=== PATIENT | male | born 1985 | race Caucasian/White ===

== ENCOUNTER 2023-01-11 21:27 | Emergency (ER) | payer OTHER, SELFPAY ==
[2023-01-11 21:28] VITALS: BP 134/99; PULSE 111; RESP 16; TEMP 36.7; O2SAT 98; BMI 63.6
--- NOTE | 2023-01-11 21:56 | EDS_ITS ---
HPI History of Present Illness Chief Complaint: Abscess Informant: patient Onset/Context/Timing Onset: Weeks (1) Context: Gradual Onset Timing: Continuous Quality: Tender swollen Location: Left forearm Current Severity: Moderate Maximum Severity: Moderate Worsened by: Palpation Narrative Narrative: Patient with spontaneous onset of a tender swollen area on his left forearm, started 1 week ago as a small red pimple that has gradually grown, he shows me pictures, basically a small papule with some mild surrounding cellulitis that has grown into a large abscess. 3 days ago he was seen at an urgent care and prescribed doxycycline, and they cecil a line around the erythematous area. He also developed a lesion at the base of his neck anteriorly, to the left. He states since he has been on the doxycycline the neck lesion has gotten better, and the erythema around the left forearm abscess has withdrawn/improved, but the abscess itself is gotten bigger and started to drain some purulent material. No systemic symptoms or fevers. No IV drug use. No known history of MRSA. 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 PFSH [facility] Medical History no medical history no medical history Home Medications doxycycline hyclate 100 mg capsule 100 mg PO BID 01/11/23 [History Last Taken Unknown] Allergy/AdvReac Type Severity Reaction Status Date / Time No Known Allergies Allergy Verified 01/11/23 21:27 Surgical History no surgical history Social History (Updated 01/11/23 @ 21:[address] Adrian Pena MD) Smoking Status: Never smoker substance use type: does not use ROS ROS ED Constitutional Constitutional ED: Denies chills or fever(s) Musculoskeletal Musculoskeletal: Reports extremity pain and neck pain Integumentary Reports wounds; Denies Abrasions Neurologic Neurologic: Denies paresthesias or weakness EXAM Physical Exam Const Vital Signs: 01/11/23 21:28 Temperature 98.1 F Temperature Source Temporal Pulse Rate 111 H Respiratory Rate 16 Blood Pressure 134/99 H Blood Pressure Mean 110 Pulse Ox 98 Oxygen Delivery Method Room Air Positive well nourished and well developed General Appearance ED: well developed and NAD Neck full ROM and supple Back/Spine normal ROM and normal to inspection Extremity Extremity Narrative: Tender, pointing, erythematous indurated and fluctuant 3 cm abscess on the radial aspect of the left forearm, junction of the distal and middle thirds, tender, cellulitis surrounding it but does not extend to the line that was drawn, no lymphangitis, full range of motion throughout elbow, fingers, and wrist without difficulty. Otherwise extremities benign. Neuro oriented x3, no focal motor deficits and no sensory deficits noted Sensorium / Orientation: alert Psych mental status grossly normal and thought process normal Skin Skin Narrative: Abscess left forearm with surrounding cellulitis mild, another very small nonfluctuant subcentimeter abscess anterior base of the neck on the left side, no spontaneous drainage or surrounding cellulitis. MDM MDM MDM Narrative Medical decision making narrative: Patient amenable to incision and drainage of this abscess which was performed see the procedure note. Since the other lesion on his neck and the erythema/cellulitis around the large left forearm abscess have significantly improved on doxycycline I would recommend continuing that rather than changing it. I suspect MRSA, there is higher resistance to doxycycline and in this area for this, however since it is working I would continue it. If anything worsens I recommend returning to the ER for reevaluation, he is comfortable with that plan. We discussed dressing changes and packing removal. Procedures Other Procedures Procedure(s): Complex incision and drainage abscess left forearm: Sterile prep and drape with chlorhexidine, local anesthesia with 5 cc plain 1% lidocaine in and around the abscess, incised centrally with a #10 blade, purulent discharge expressed, entire cavity probed and deloculated, irrigated with saline, and packed with quarter inch sterile gauze. Dressed with bacitracin and gauze, tolerated well no complications. Discharge Plan Triage Chief Complaint: Abscess ED Provider: Adrian Pena Dx/Rx/DC Orders Clinical Impression: Abscess of left forearm Instructions: ED Abscess Incision And Drainage Prescriptions: Continued doxycycline hyclate 100 mg Capsule 100 mg PO BID Primary Care Provider: Care Physician,No Primary Referrals: Doctor,Your [Non-Staff] - 3-5 Days if not improving (or return to ER) Activity Restrictions/Additional Instructions: Change dressing frequently in the first day or 2, as needed whenever it gets dirty/bloody. This type of discharge is normal. Use antibiotic ointment to each dressing. Okay to shower and get soap and water on the affected area but pat dry and change the dressing afterwards. In approximately 2 days, on 01/14, remove the gauze packing and discard, followed by continue dressing changes with antibiotic ointment with each one. Disposition Disposition: Home, Self Care
[2023-01-11] MEDS: Lidocaine 1% (20 ml mdv) 20 ML Vial INFILT (22:25)
[2023-01-11] MEDS: Ibuprofen 600 MG Tablet PO (23:03)
== END 2023-01-11 23:09 | disposition home or self-care (01) ==
PROVIDERS: Emergency Provider Emergency Medicine; Visit Provider Emergency Medicine
DX: L02.414 Cutaneous abscess of left upper limb (principal)
CPT/HCPCS: 10061; 10060; 99283

== ENCOUNTER 2023-05-22 20:58 | Emergency (ER) | payer OTHER, SELFPAY ==
[2023-05-22 20:59] VITALS: BP 139/94; PULSE 121; RESP 16; TEMP 36.9; O2SAT 99; BMI 32.4
--- NOTE | 2023-05-22 21:10 | EX.ED.DYSGE1 ---
HPI History of Present Illness Chief Complaint: Abscess Informant: patient Onset/Context/Timing Onset: Days (2) Context: Gradual Onset Timing: Continuous Quality: sore Location: L buttock Current Severity: Moderate Maximum Severity: Moderate Worsened by: palpation/sitting Relieved by: leaving alone Narrative Narrative: Patient developed a sore swollen area that started draining today, started as a pimple. Similar to the lesion he had on his left forearm earlier this year that he had I indeed here. States he rode in a dirty car and this started shortly thereafter this time. No systemic symptoms. PFSH PFSH Medical History no medical history no medical history Home Medications doxycycline hyclate 100 mg capsule 100 mg PO BID 01/11/23 [History Last Taken Unknown] sulfamethoxazole 800 mg-trimethoprim 160 mg tablet 1 tab PO BID #20 TABLETS 05/22/23 [Rx Last Taken Unknown] Allergy/AdvReac Type Severity Reaction Status Date / Time No Known Allergies Allergy Verified 05/22/23 21:01 Social History Smoking Status: Never smoker substance use type: does not use ROS ROS ED Constitutional Constitutional ED: Denies chills or fever(s) Integumentary Reports abscess Neurologic Neurologic: Denies headache(s), paresthesias or weakness EXAM Physical Exam Const Vital Signs: 05/22/23 20:59 Temperature 98.4 F Temperature Source Temporal Pulse Rate 121 H Respiratory Rate 16 Blood Pressure 139/94 H Blood Pressure Mean 109 Pulse Ox 99 Oxygen Delivery Method Room Air Positive well nourished and well developed General Appearance ED: well developed and NAD Skin Skin Narrative: 3 cm in diameter abscess with surrounding erythema left buttock, no expressible spontaneous discharge. MDM MDM MDM Narrative Medical decision making narrative: Abscess was incised and drained, see the procedure note. Only a scant amount of purulent material. Started on Bactrim, advised with regards to dressing changes and antibiotic treatment. Procedures Other Procedures Procedure(s): Simple abscess incision and drainage: Left buttock abscess locally anesthetized with 3 cc plain 1% lidocaine, prepped with isopropanol followed by chlorhexidine, incised centrally with a #11 blade, a very scant amount of purulent material was expressed, I deloculated the cavity which was smaller than expected, and not large enough to pack. Irrigated with saline, dressed with bacitracin, tolerated well no complications. Discharge Plan Triage Chief Complaint: Abscess ED Provider: Adrian Pena Dx/Rx/DC Orders Clinical Impression: Abscess of left buttock Instructions: ED Abscess Incision And Drainage Prescriptions: New sulfamethoxazole-trimethoprim [sulfamethoxazole-trimethoprim] 800-160 mg tablet 1 tab PO BID Qty: 20 0RF No Action doxycycline hyclate 100 mg Capsule 100 mg PO BID Primary Care Provider: Care Physician,No Primary Referrals: Doctor,Your [Non-Staff] - 3-5 Days if not improving Disposition Disposition: Home, Self Care
[2023-05-22] MEDS: Lidocaine 1% (20 ml mdv) 20 ML Vial INFILT (21:32)
[2023-05-22] MEDS: Smz/Tmp Ds Tablet 1 TABLET PO (21:32)
--- NOTE | 2023-05-23 12:46 | ED.RN ---
PRESCRIPTION CALLED IN TO [facility] FOR PT DUE TO MISUNDERSTANDING OF D/C INSTRUCTIONS TO GET PAPER PRESCRIPTION UP TO PHARMACY TO GET IT FILLEWD
== END 2023-05-22 22:37 | disposition home or self-care (01) ==
PROVIDERS: Emergency Provider Emergency Medicine; Visit Provider Emergency Medicine
DX: L02.31 Cutaneous abscess of buttock (principal)
CPT/HCPCS: 10060; 99281; 99282

== ENCOUNTER 2023-06-08 20:59 | Emergency (ER) | payer OTHER, SELFPAY ==
[2023-06-08 20:59] VITALS: BP 153/90; PULSE 100; RESP 16; TEMP 36.6; O2SAT 99; BMI 31.5
--- NOTE | 2023-06-08 22:49 | EX.ED.DYSGE1 ---
HPI History of Present Illness Chief Complaint: Abscess Informant: patient Narrative Narrative: Patient states that he has had MRSA abscesses before. He is starting to get 1 on his left volar wrist. He does not inject drugs. 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 He also gets blocked sweat glands that will sometimes flareup. He states he is coming in early so he does not have a big abscess. He has no fevers chills nausea vomiting or any systemic symptoms. He states nothing that he knows of injured this area but he commonly gets poked and scraped. He has been on Bactrim and doxycycline before. He feels the doxycycline worked better for him. It did not cause any side effects. PFSH PFS Home Medications doxycycline hyclate 100 mg capsule 100 mg PO BID 01/11/23 [History Last Taken Unknown] sulfamethoxazole 800 mg-trimethoprim 160 mg tablet 1 tab PO BID #20 TABLETS 05/22/23 [Rx Last Taken Unknown] doxycycline monohydrate 100 mg capsule 100 mg PO BID #20 CAPSULES 06/08/23 [Rx Last Taken Unknown] Allergy/AdvReac Type Severity Reaction Status Date / Time No Known Allergies Allergy Verified 06/08/23 21:01 Social History Smoking Status: Never smoker substance use type: does not use ROS ROS ED Constitutional Constitutional ED: Denies chills, fever(s), subjective or sweats ENT ENT ED: Denies rhinorrhea or sore throat Cardiovascular Cardiovascular: Denies chest pain or palpitations Respiratory/Chest Respiratory/Chest: Denies cough Gastrointestinal Gastrointestinal: Denies nausea or vomiting Musculoskeletal Musculoskeletal: Denies myalgias Integumentary Reports abscess Endocrine Endocrinology: Denies polydipsia or polyuria Hematologic/Lymphatic Hematologic/Lymphatic: Denies lymphadenopathy Allergic/Immunologic Allergic/Immunologic ED: Denies urticaria EXAM Physical Exam Narrative Exam Narrative: Patient awake alert no acute distress sitting in bed comfortably. HEENT shows no sign of trauma mucous membranes are moist. Lungs are clear bilaterally and saturations are normal at 99% on room air showing no hypoxia. Heart is regular. No murmur. Extremities show a small area of erythema about 1 and half centimeters round on the volar wrist area. There is a slightly raised area but is not fluctuant. I really do not think there is anything to drain at this time. There certainly could be a small abrasion or puncture that initiated this. But it is not large. Its not fluctuant. We discussed options and I do not think incision is appropriate at this time. Const Vital Signs: 06/08/23 20:59 Temperature 97.9 F Temperature Source Temporal Pulse Rate 100 Respiratory Rate 16 Blood Pressure 153/90 H Blood Pressure Mean 111 Pulse Ox 99 Oxygen Delivery Method Room Air MDM MDM MDM Narrative Medical decision making narrative: I discussed options with patient. I do not think he would benefit from incision and drainage. We will get him on antibiotics with warm compresses. If it swells up more or develops a head or soft area that may benefit from incision. Discharge Plan Triage Chief Complaint: Abscess ED Provider: Griffin Adan Dx/Rx/DC Orders Clinical Impression: Abscess of skin of left wrist, History of MRSA infection, Cellulitis of forearm, left Instructions: ED Abscess Antibiotic Treatment Only Prescriptions: New doxycycline monohydrate 100 mg capsule 100 mg PO BID Qty: 20 0RF No Action doxycycline hyclate 100 mg Capsule 100 mg PO BID sulfamethoxazole-trimethoprim [sulfamethoxazole-trimethoprim] 800-160 mg tablet 1 tab PO BID Qty: 20 0RF Primary Care Provider: Care Physician,No Primary Referrals: Jorge Del Cid, [Med Staff - [employer]] - 3-5 Days if not improving Care Physician,No Primary [Primary Care Provider] - Disposition Disposition: Home, Self Care
[2023-06-08] MEDS: Doxycycline 100 MG CAPSULE PO (23:08)
== END 2023-06-08 23:12 | disposition home or self-care (01) ==
PROVIDERS: Emergency Provider Emergency Medicine; Visit Provider Emergency Medicine
DX: L02.414 Cutaneous abscess of left upper limb (principal); L03.114 Cellulitis of left upper limb; Z86.14 Personal history of Methicillin resistant Staphylococcus aureus infection
CPT/HCPCS: 99283

== ENCOUNTER 2023-07-21 19:17 | Emergency (ER) | payer OTHER, SELFPAY ==
[2023-07-21 19:18] VITALS: BP 148/101; PULSE 108; RESP 18; TEMP 36.2; O2SAT 100; BMI 31.4
[2023-07-21 19:20] VITALS: BP 148/101; PULSE 108; RESP 18; TEMP 36.2; O2SAT 100
--- NOTE | 2023-07-21 19:50 | EX.ED.DYSGE1 ---
HPI History of Present Illness Chief Complaint: Abscess Detail of Chief Complaint: Redness and swelling to right hip Informant: patient Narrative Narrative: Patient presents to the emergency department complaint of redness and swelling to his right hip. Patient states that initially started with what looked like a small pimple yesterday which she tried to pop. Now increased redness and swelling. He had some chills today. He had abscess on his left wrist that required incision and drainage. Patient denies IV drug use or injection. PFSH PFSH Medical History no medical history Home Medications NK 07/21/23 [History Last Taken Unknown] cephalexin 500 mg capsule 500 mg PO Q6 #40 CAPSULES 07/21/23 [Rx Last Taken Unknown] sulfamethoxazole 800 mg-trimethoprim 160 mg tablet 1 tab PO BID #20 TABLETS 07/21/23 [Rx Last Taken Unknown] Allergy/AdvReac Type Severity Reaction Status Date / Time No Known Allergies Allergy Verified 07/21/23 19:18 Surgical History no surgical history Social History Smoking Status: Former smoker substance use type: does not use ROS ROS ED Review of Systems ROS Unobtainable: other Constitutional Constitutional ED: Reports lethargy; Denies chills, fever(s), sweats or weight loss Eyes Eyes: Denies blurry vision, change in vision or diplopia ENT ENT ED: Denies rhinorrhea or sore throat Cardiovascular Cardiovascular: Denies chest pain, orthopnea or racing heartbeat Respiratory/Chest Respiratory/Chest: Denies cough, dyspnea, dyspnea on exertion, orthopnea or sputum Gastrointestinal Gastrointestinal: Denies abdominal pain, diarrhea, nausea or vomiting Genitourinary Genitourinary ED: Denies dysuria, hematuria or urinary frequency Musculoskeletal Musculoskeletal: Denies arthralgias, back pain, myalgias or neck pain Integumentary Reports other Details: Redness and swelling to right hip ; Denies abscess, Abrasions or rash Neurologic Neurologic: Denies headache(s) or weakness Psychiatric Psychiatric: Denies anxiety, depression or suicidal thoughts Endocrine Endocrinology: Denies polydipsia, polyphagia or polyuria Hematologic/Lymphatic Hematologic/Lymphatic: Denies easy bleeding, easy bruising or lymphadenopathy Allergic/Immunologic Allergic/Immunologic ED: Denies mouth swelling, tongue swelling or urticaria EXAM Physical Exam Const Vital Signs: 07/21/23 19:18 07/21/23 19:20 07/21/23 22:29 Temperature 97.2 F L 97.2 F L Temperature Source Temporal Temporal Pulse Rate 108 H 108 H 90 Respiratory Rate 18 18 16 Blood Pressure 148/101 H 148/101 H 136/89 H Blood Pressure Mean 116 116 104 Pulse Ox 100 100 Positive well nourished and well developed General Appearance ED: well developed and NAD HEENT Reports TM's clear and moist mucous membranes normocephalic and atraumatic; Negative for trauma or tenderness Tympanic Membrane ED: Yes TM's clear Eyes PERRL and EOMs intact bilaterally General Eye ED: Negative for pale conjunctiva or scleral icterus Neck no lymphadenopathy, supple and no JVD General: Negative for tenderness Chest Wall inspection of chest normal and palpation of chest normal Chest: Negative for tenderness Resp normal respiratory effort and clear to auscultation bilaterally Effort and Inspection: Negative for respiratory distress or pain with movement Auscultation: Negative for rhonchi, wheezes or diminished lung sounds Cardio regular rate, regular rhythm, S1 normal heart sound, S2 normal heart sound and no murmurs Peripheral Pulses: pulses 2+ throughout GI normal to inspection, nondistended, normoactive bowel sounds, soft to palpation, non-tender, non-distended and no masses Back/Spine no CVA tenderness and no thoracic nor lumbar tenderness Extremity Extremity Narrative: Right hip-patient has an area of erythema measuring approximately 15 cm x 12 cm overlying the right hip. Central portion indurated and excoriated and is I compress the area there are small amount of purulent drainage from it. General Extremety ED: Negative for edema General Extremity: Negative for edema Neuro oriented x3, CN's II-XII intact bilaterally, no sensory deficits noted and gait normal Sensorium / Orientation: awake, alert, oriented to person, oriented to place and oriented to time Motor Exam: strength 5/5 throughout and strength abnormal Psych mental status grossly normal Skin no rashes or lesions noted and no wounds MDM MDM MDM Narrative Medical decision making narrative: And consented for incision and drainage of suspected abscess. Please see procedure note. We were able to obtain copious amounts of purulent debris from the wound. I irrigated the cavity and play small iodoform gauze packing. Clean dressing applied. Patient received clindamycin 900 mg IV in the department. I did send off MRSA PCR. We will treat patient with Bactrim and Keflex for home. Clinically he looks well I feel he can attempt p.o. antibiotics at home. We did outline the area of erythema with marker and advised that he return if increased redness, fever, worsening pain or swelling, or condition should worsen anyway. Will refer to general surgery for follow-up Lab Data Attestation: I reviewed the patient's lab results. Labs: Laboratory Results - last 24 hr 07/21/23 07/21/23 20:00 20:30 WBC 16.7 H RBC 4.81 Hgb 15.0 Hct 44.0 MCV 91.5 MCH 31.2 MCHC 34.1 RDW Std Deviation 40.8 RDW Coeff of Mandy 12.1 Plt Count 269 MPV 10.0 Immature Gran % (Auto) 0.400 Neut % (Auto) 72.9 H Lymph % (Auto) 16.6 L Stafford % (Auto) 8.8 Eos % (Auto) 1.0 Baso % (Auto) 0.3 Absolute Neuts (auto) 12.2 H Absolute Lymphs (auto) 2.76 Nucleated RBC % 0 Sodium 136 Potassium 3.4 L Chloride 105 Carbon Dioxide 25.0 Anion Gap 6 BUN 17 Creatinine 1.02 Estim Creat Clear Calc 100.39 Est GFR (MDRD) Af Amer 104 Est GFR (MDRD) Non-Af 86 BUN/Creatinine Ratio 16.7 Glucose 132 H Calcium 9.1 S.aureus Protein A PCR POSITIVE H MRSA (PCR) POSITIVE H Procedures Other Procedures Procedure(s): Incision and drainage of abscess on right hip. Skin cleansed with iodine. Skin anesthetized locally with 1% lidocaine total of 3 cc. Using an 11 blade a 2.5 cm incision was made over the fluctuant portion of the suspected abscess with large amount of purulent debris expressed. I used curved hemostats to undermine the soft tissue and skin and again large amount of purulent debris was expressed. I irrigated the cavity with saline total of 50 cc. I applied a small iodoform gauze wick into the wound and clean dressing will be applied. Advised patient to remove the wick in 2 days or if it falls out to the leave it alone. Patient tolerated procedure well. Discharge Plan Triage Chief Complaint: Abscess ED Provider: Last Garcia Dx/Rx/DC Orders Clinical Impression: Abscess of hip, right, Cellulitis of hip, right Instructions: ED Abscess Incision And Drainage, ED Cellulitis Prescriptions: New sulfamethoxazole-trimethoprim [sulfamethoxazole-trimethoprim] 800-160 mg tablet 1 tab PO BID Qty: 20 0RF cephalexin [cephalexin] 500 mg capsule 500 mg PO Q6 Qty: 40 0RF No Action NK Primary Care Provider: Care Physician,No Primary Referrals: Arias Pham MD [Med Staff - Active Staff] - 3-5 Days Care Physician,No Primary [Primary Care Provider] - Disposition Disposition: Home, Self Care Discharge Date/Time: 07/21/23 22:30
[2023-07-21] MEDS: Lidocaine 1% (20 ml mdv) 20 ML Vial 6 ML INFILT (20:08)
[2023-07-21] MEDS: Clindamycin 900 MG/50 ML BAG 75 MG IV (20:28)
[2023-07-21 20:29] LABS: Absolute Lymphocyte Count 2.76 X10^3/uL (0.83-4.51); Absolute Neutrophil Count 12.2 X10^3/uL (2.0-7.7); Basophil# 0.05 X10^3/uL; Basophil% 0.3 % (0-1); Eosinophil# 0.16 X10^3/uL; Lymphocyte # 2.76 X10^3/ul (0.83-4.51); Lymphocyte % 16.6 % (19-41); Mean Corp Hgb Conc 34.1 g/dL (32-36); Mean Corpuscular Hgb 31.2 pg (27.0-32.0); Mean Corpuscular Volume 91.5 fL (80-94); Monocyte# 1.46 X10^3/uL; Monocyte% 8.8 % (0-10); NRBC Flagged by Analyzer 0 % (0-5); Neutrophil # 12.17 X10^3/uL (2.7-7.7); Neutrophil % 72.9 % (47-70); Platelet Count 269 K/mm3 (150-450); RBC Distribution Width CV 12.1 % (11.6-14.6); RBC Distribution Width SD 40.8 fl (35.1-43.9); Red Blood Count 4.81 M/mm3 (4.6-6.2); White Blood Count 16.7 K/mm3 (4.4-11.0)
[2023-07-21 20:43] LABS: Anion Gap 6 (5-15); BUN 17 mg/dL (7-18); BUN/Creat Ratio 16.7 RATIO (10-20); Calcium,Total 9.1 mg/dL (8.5-10.1); Chloride 105 mmol/L (98-107); Creatinine, Serum 1.02 mg/dL (0.70-1.30); EST Glomerular Filtration Rate 86 mL/min (>60); Est Glom Filt Rate - Afr Amer 104 mL/min (>60); Estimated Creatinine Clearance 100.39 ml/min; Glucose 132 mg/dL (74-106); Potassium 3.4 mmol/L (3.5-5.1); Sodium Level 136 mmol/L (136-145)
[2023-07-21 21:50] LABS: Probe Check PASS; Staph aureus DNA By PCR POSITIVE (Negative)
[2023-07-21 21:51] LABS: M R Staph aureus DNA By PCR POSITIVE (Negative)
--- NOTE | 2023-07-21 21:55 | ED.RN ---
lab called with positive MRSA results. patient dc with bactrim and keflex. per dr. Garcia patient being treated properly no need for further follow up
[2023-07-21 22:29] VITALS: BP 136/89; PULSE 90; RESP 16
== END 2023-07-21 22:30 | disposition home or self-care (01) ==
PROVIDERS: Emergency Provider Emergency Medicine; Visit Provider Emergency Medicine
DX: L03.115 Cellulitis of right lower limb (principal); L02.415 Cutaneous abscess of right lower limb; Z87.891 Personal history of nicotine dependence
CPT/HCPCS: 10060; 80048; 85025; 87640; 96365; 99282; J7050; A4216

== ENCOUNTER 2023-09-13 20:52 | Emergency (ER) | payer OTHER, SELFPAY ==
[2023-09-13 20:54] VITALS: BP 182/90; PULSE 100; RESP 18; TEMP 36.9; O2SAT 99; BMI 32.1
--- NOTE | 2023-09-13 21:23 | EX.ED.DYSGE1 ---
HPI History of Present Illness Chief Complaint: Abscess Narrative Narrative: 37-year-old male who denies significant past medical history although he has had multiple abscesses and had incision and drainage performed on them. He had an area on his left wrist on his right hip. He states that over the last few days, he has developed multiple abscesses on his bilateral lower extremities, and 1 on his buttocks cheek. He has been sitting in warm water, and draining them. When he squeezes, he has a large amount of pus come out of his left buttocks cheek. He squeezes the areas on his legs and gets a small amount of pus drainage. He states he last had the abscess on his hip drained a month and a half ago. He was put on antibiotics and told he had MRSA. He states that he was doing well when he was on the antibiotics. He presents because of the multiple abscesses on his legs and on his buttocks. PFSH PFS Home Medications cephalexin 500 mg capsule 500 mg PO Q6 #40 CAPSULES 07/21/23 [Rx Last Taken Unknown] doxycycline hyclate 100 mg capsule 100 mg PO BID #20 caps 08/04/23 [Rx Last Taken Unknown] cephalexin 500 mg capsule 500 mg PO Q6 10 days #40 CAPSULES 09/13/23 [Rx Last Taken Unknown] sulfamethoxazole 800 mg-trimethoprim 160 mg tablet (Bactrim DS) 1 tab PO BID 10 days #20 tabs 09/13/23 [Rx Last Taken Unknown] Allergy/AdvReac Type Severity Reaction Status Date / Time No Known Allergies Allergy Verified 09/13/23 20:56 Social History Smoking Status: Former smoker substance use type: does not use ROS ROS ED ROS Narrative Constitutional: No fever, no chills. HEENT: No sore throat. No neck pain. No loss of vision. No rhinorrhea. Cardiovascular: No chest pain. No palpitations. No pedal edema. Respiratory: No cough, no shortness of breath. Abdominal: No abdominal pain. No nausea. No vomiting. No problems with bowel movements. No pain with bowel movements. Genitourinary: No dysuria. No hematuria. Musculoskeletal: No myalgias. No arthralgias. Neurologic: No headaches. No dizziness. No lightheadedness. Skin: No rash. However, multiple abscesses on anterior legs, and on buttocks cheek. No change in color. Psychiatric: No depression. No anxiety. EXAM Physical Exam Narrative Exam Narrative: Afebrile. Vital signs noted. Nontoxic-appearing. HEENT: Normocephalic. Atraumatic. PERRL, EOMI. Neck soft and supple. No point tenderness or step off. Cardiovascular: Regular rate and rhythm. No murmurs, rubs, or gallops appreciated. Respiratory: No tachypnea. Lungs clear to auscultation bilaterally. Gastrointestinal: Abdomen soft, nontender, with normoactive bowel sounds. No rebound or guarding. Neurological: Awake. Alert. Nonfocal, nonlateralizing. Skin: No rash. Normal color. No pallor. Multiple areas of erythema and evidence of draining abscesses on bilateral lower extremities, and on buttocks cheek. No fluctuance of multiple abscesses. Musculoskeletal: No pedal edema. Full range of motion extremities. Const Vital Signs: 09/13/23 20:54 Temperature 98.4 F Temperature Source Temporal Pulse Rate 100 Respiratory Rate 18 Blood Pressure 182/90 H Blood Pressure Mean 120 Pulse Ox 99 Oxygen Delivery Method Room Air MDM MDM MDM Narrative Medical decision making narrative: I feel that these are not drainable abscesses, and patient states he has already drained the majority of them. His buttocks abscess is not as painful, and there is area of eschar and previous drainage. While I do not feel that incision and drainage is indicated currently, he will continue warm water soaks, and he will be placed on MRSA antibiotics in the form of Keflex to take 4 times a day, and additionally to take Bactrim DS twice a day for 10 days. He was referred to a primary care provider, and also to dermatology. I feel he can be discharged safely home with follow-up. Return instructions to the emergency department were reviewed. Patient is agreeable to the plan. Disposition is discharged home, in stable condition. Differential Diagnosis Differential Diagnosis: MRSA abscesses Differential Diagnosis: Cellulitis. Folliculitis. Discharge Plan Triage Chief Complaint: Abscess ED Provider: Benigno Saravia Dx/Rx/DC Orders Clinical Impression: Abscess of buttock, Multiple abscesses of both legs Instructions: ED Abscess Antibiotic Treatment Only, Staph MRSA Prescriptions: New cephalexin 500 mg capsule 500 mg PO Q6 10 Days Qty: 40 0RF sulfamethoxazole-trimethoprim [Bactrim DS] 800-160 mg tablet 1 tab PO BID 10 Days Qty: 20 0RF No Action doxycycline hyclate 100 mg capsule 100 mg PO BID Qty: 20 0RF cephalexin [cephalexin] 500 mg capsule 500 mg PO Q6 Qty: 40 0RF Primary Care Provider: Care Physician,No Primary Referrals: Elizabeth Cannon MD [Non-Staff] - As soon as possible Jonathan Ferraro MD [Med Staff - Active Staff] - 1 Week if not improving Care Physician,No Primary [Primary Care Provider] - Disposition Disposition: Home, Self Care
[2023-09-13] MEDS: Smz/Tmp Ds Tablet 1 TABLET PO (21:29)
[2023-09-13] MEDS: Cephalexin 250 MG Capsule 500 MG PO (21:29)
== END 2023-09-13 21:32 | disposition home or self-care (01) ==
PROVIDERS: Emergency Provider Emergency Medicine; Visit Provider Emergency Medicine
DX: L02.31 Cutaneous abscess of buttock (principal); Z87.891 Personal history of nicotine dependence; L02.415 Cutaneous abscess of right lower limb; L02.416 Cutaneous abscess of left lower limb
CPT/HCPCS: 99283